=== PATIENT | female | born 1945 | race Caucasian/White ===

== ENCOUNTER 2020-06-02 20:40 | Inpatient (IN) | payer OTHER ==
[~2020-06-02] VITALS: Ht 157.5 cm; Wt 65.8 kg
--- NOTE | 2020-06-02 22:06 | NUR ---
PT ARRIVED ON UNIT VIA EMS STRETCHER. POSITIONED IN BED FOR COMFORT. ORIENTED TO ROOM AND CALL LIGHT.
--- NOTE | 2020-06-02 22:10 | NUR ---
CALLED DR REDDY TO RECEIVE ADMIT ORDERS.
--- NOTE | 2020-06-03 | NUR ---
STARTED IV FLUIDS PER ORDER. STARTED SANITARY LANDFILL OPERATOR AND GAVE INSTRUCTIONS ON USE. STARTED PROTONIX DRIP AT 10 ML/HR. ALL TUBING CAPPED AND LABELED.
--- NOTE | 2020-06-03 00:02 | NUR ---
PROVIDED SUPPLIES TO STORE AND CLEAN DENTURES.
[2020-06-03 00:06] VITALS: BP 116/64; BMI 26.6
[2020-06-03] MEDS ORDERED: LEVEMIR FL100 UNIT/1 SC (01:01)
[2020-06-03] MEDS ORDERED: HYDROCODON-ACE1 EA10 PO (01:01)
[2020-06-03] MEDS ORDERED: NEURONTIN 400400 MG PO (01:02)
[2020-06-03] MEDS ORDERED: ALDACTONE25 MG PO (01:02)
[2020-06-03] MEDS ORDERED: LISINOPRIL40 MG PO (01:02)
[2020-06-03] MEDS ORDERED: MIRAPEX0.25 MG PO (01:02)
[2020-06-03] MEDS ORDERED: COREG6.25 MG PO (01:03)
[2020-06-03] MEDS ORDERED: CYMBALTA60 MG PO (01:03)
--- NOTE | 2020-06-03 02:00 | NUR ---
PT RESTING QUIETLY ON RIGHT SIDE WITH EYES CLOSED AND EASY RESPIRATION. WILL CONTINUE TO MONITOR FOR NEEDS.
[2020-06-03 04:00] VITALS: BP 95/54
[2020-06-03 06:24] LABS: BASOPHILS 0.7 % (0-2); EOSINOPHILS 2.6 % (0-7); HEMATOCRIT 32.8 % (36.0-48.0); HEMOGLOBIN 10.1 g/dL (12-16); IMMATURE GRANULOCYTES 0.7 % (0-5); LYMPHOCYTES 23.5 % (15-50); MCH 29.5 pg (26.0-34.0); MCHC 30.8 g/dL (31.0-37.0); MCV 95.9 fL (80.0-100.0); MEAN PLATELET VOLUME 9.2 fL (7.4-10.4); MONOCYTES 9.5 % (2-11); PLATELET COUNT 379 10x3/uL (130-400); RBC 3.42 10x6/uL (4.00-5.40); WBC 9.7 10x3/uL (4.8-10.8)
[2020-06-03 06:44] LABS: ANION GAP 14.6 mmol/L (8-16); CALCIUM 8.2 mg/dL (8.5-10.1); CREATININE - SERUM 0.8 mg/dL (0.6-1.3); POTASSIUM - SERUM 4.6 mmol/L (3.5-5.1)
[2020-06-03 08:39] VITALS: BP 98/61
[2020-06-03 12:29] VITALS: BP 109/78
[2020-06-03 14:04] VITALS: BMI 26.5
[2020-06-03 15:56] VITALS: Ht 157.5 cm; Wt 65.8 kg
[2020-06-03 17:15] VITALS: BP 105/62
--- NOTE | 2020-06-03 19:00 | NUR ---
BEDSIDE REPORT RECEIVED AND CARE OF PT ASSUMED. PT LYING IN HIGH JEFFERSON'S POSITION TALKING ON THE PHONE. IV TO LEFT AC PATENT WITH NS INFUSING AT 100 ML/HR. WILL MONITOR FOR NEEDS.
[2020-06-03 20:00] VITALS: BP 153/63
--- NOTE | 2020-06-03 20:00 | NUR ---
HS MEDICATIONS GIVEN. FSBS 91 THIS CHECK REQUIRING NO COVERAGE PER SLIDING SCALE.
--- NOTE | 2020-06-03 21:54 | NUR ---
GAVE DILAUDID BOLUS 0.4 VIA RESOURCE EFFICIENCY MANAGER PUMP FOR PAIN.
--- NOTE | 2020-06-04 01:13 | NUR ---
PT AWAKE MOST OF THE NIGHT DUE TO PT IN NEXT ROOM YELLING ALL NIGHT.
--- NOTE | 2020-06-04 02:25 | NUR ---
CALLED TO ROOM...PT WANTS PAIN MEDICATION INCREASED BECAUSE OF CHRONIC BACK AND SHOULDER PAIN. GAVE 0.4 MG BOLUS DOSE OF DILAUDID VIA WELDER SETTER ELECTRON BEAM MACHINE PER ORDER. TOLD PT TO SPEAK TO MD IN AM IF SHE NEEDS ADDITIONAL PAIN MEDS.
--- NOTE | 2020-06-04 04:38 | NUR ---
PROVIDED ORAL CARE KIT AND TEACHING FOR ORAL CARE.
[2020-06-04 04:52] LABS: BASOPHILS 0.9 % (0-2); HEMATOCRIT 31.1 % (36.0-48.0); HEMOGLOBIN 9.6 g/dL (12-16); IMMATURE GRANULOCYTES 0.5 % (0-5); LYMPHOCYTES 27.2 % (15-50); MCH 29.4 pg (26.0-34.0); MCHC 30.9 g/dL (31.0-37.0); MCV 95.1 fL (80.0-100.0); MEAN PLATELET VOLUME 9.1 fL (7.4-10.4); MONOCYTES 8.6 % (2-11); NEUTROPHILS 59.8 % (40-80); PLATELET COUNT 381 10x3/uL (130-400); RBC 3.27 10x6/uL (4.00-5.40); RDW 13.7 % (11.5-14.5); WBC 8.6 10x3/uL (4.8-10.8)
[2020-06-04 05:22] LABS: ALBUMIN 2.7 g/dL (3.4-5.0); ALKALINE PHOSPHATASE 87 U/L (30-120); ALT (SGPT) 11 U/L (10-68); BILIRUBIN - TOTAL 0.17 mg/dL (0.2-1.3); CALCIUM 8.5 mg/dL (8.5-10.1); CARBON DIOXIDE 23.7 mmol/L (21.0-32.0); CHLORIDE - SERUM 108 mmol/L (98-107); CREATININE - SERUM 0.7 mg/dL (0.6-1.3); GLUCOSE 72 mg/dL (74-106); PROTEIN - SERUM 6.5 g/dL (6.4-8.2); SODIUM 140 mmol/L (136-145); eGFR NON AFRICAN AMERICAN 87 mL/min (90-120)
[2020-06-04 05:27] LABS: CALC OSMOLALITY 278 mosm/kg (275-300); POTASSIUM - SERUM 3.9 mmol/L (3.5-5.1); UREA NITROGEN 14 mg/dL (7-18)
[2020-06-04 08:00] VITALS: BP 115/65
--- NOTE | 2020-06-04 08:06 | NUR ---
ASSESSMENT PER FLOW SHEET. PATIENT IS UP FOR SHOWER THIS AM. SHE DENIES ABDOMINAL PAIN AT PRESENT,BUT COMPLAINS OF CHRONIC BACK AND HIP PAIN.
[2020-06-04 13:19] VITALS: BP 126/69
[2020-06-04 16:00] VITALS: BP 138/63
--- NOTE | 2020-06-04 17:49 | NUR ---
REMAINS WITHOUT NEEDS,WITHOUT CHANGE. CONT PLAMN OF CARE
[2020-06-04 20:00] VITALS: BP 141/75
--- NOTE | 2020-06-04 20:30 | NUR ---
PT SITTING UP ON SIDE OF BED WITHOUT DISTRESS, AOX4. IV LEFT AC INFUSING NS @ 100, PROTONIX @ 10, DILAUDID AUDIOVISUAL PRODUCTION SPECIALIST. PT STATES BACK HURTS, HAVING SPASMS. FSBS 71. BENADRYL GIVEN FOR SLEEP. DENIES OTHER NEEDS AT THIS TIME. CL IN REACH, WILL CTM
[2020-06-05] VITALS: BP 140/68
[2020-06-05 04:00] VITALS: BP 140/79
[2020-06-05 06:10] LABS: BASOPHILS 1.2 % (0-2); EOSINOPHILS 2.8 % (0-7); HEMATOCRIT 31.3 % (36.0-48.0); HEMOGLOBIN 9.9 g/dL (12-16); IMMATURE GRANULOCYTES 0.5 % (0-5); LYMPHOCYTES 23.2 % (15-50); MCH 29.7 pg (26.0-34.0); MCHC 31.6 g/dL (31.0-37.0); MEAN PLATELET VOLUME 8.9 fL (7.4-10.4); MONOCYTES 7.6 % (2-11); NEUTROPHILS 64.7 % (40-80); PLATELET COUNT 399 10x3/uL (130-400); RBC 3.33 10x6/uL (4.00-5.40); RDW 13.5 % (11.5-14.5); WBC 9.2 10x3/uL (4.8-10.8)
[2020-06-05 07:08] LABS: ALKALINE PHOSPHATASE 109 U/L (30-120); ALT (SGPT) 13 U/L (10-68); BILIRUBIN - TOTAL 0.24 mg/dL (0.2-1.3); CALCIUM 8.7 mg/dL (8.5-10.1); CARBON DIOXIDE 25.6 mmol/L (21.0-32.0); CHLORIDE - SERUM 107 mmol/L (98-107); CREATININE - SERUM 0.7 mg/dL (0.6-1.3); POTASSIUM - SERUM 3.5 mmol/L (3.5-5.1); PROTEIN - SERUM 6.8 g/dL (6.4-8.2); SODIUM 141 mmol/L (136-145); eGFR NON AFRICAN AMERICAN 87 mL/min (90-120)
[2020-06-05 07:10] LABS: CALC OSMOLALITY 277 mosm/kg (275-300); GLUCOSE 70 mg/dL (74-106); UREA NITROGEN 9 mg/dL (7-18)
[2020-06-05 08:46] VITALS: BP 148/76
[2020-06-05 12:17] VITALS: BP 161/82
--- NOTE | 2020-06-05 12:30 | NUR ---
PT C/O SPASMS IN HER BACK. STATES THAT DILAUDID IS NOT HELPING SPASMS ONLY STOMACH. ENCOURAGED PT TO SPEAK TO DR'S DURING ROUNDS IN REGARDS TO SOMETHING FOR SPASMS. NO OTHER NEEDS AT THIS TIME. CONTINUE WITH PLAN OF CARE
[2020-06-05 16:53] VITALS: BP 184/86
[2020-06-05 20:00] VITALS: BP 150/71
--- NOTE | 2020-06-05 20:00 | NUR ---
PT LYING IN BED SLEEPING WITHOUT DISTRESS, IV LEFT AC INFUSING NS @ 100, PROTONIX @ 10, DILAUDID MEDICAL OFFICE COORDINATOR. CL IN REACH, WILL CTM
--- NOTE | 2020-06-05 21:15 | NUR ---
PT GIVEN ZANAFLEX FOR BACK SPASMS. FSBS 77. DENIES OTHER NEEDS AT THIS TIME. CL IN REACH, WILL CTM
[2020-06-06] VITALS: BP 163/83
--- NOTE | 2020-06-06 01:45 | NUR ---
PT SAT UP ON SIDE OF BED AND BEGAN VOMITING INTO EMESIS BAG. VOMITED 100ML YELLOW LIQUID. ZOFRAN GIVEN
[2020-06-06 04:00] VITALS: BP 145/83
[2020-06-06 04:52] LABS: BASOPHILS 0.9 % (0-2); EOSINOPHILS 0.6 % (0-7); HEMATOCRIT 32.5 % (36.0-48.0); HEMOGLOBIN 10.3 g/dL (12-16); IMMATURE GRANULOCYTES 1.6 % (0-5); LYMPHOCYTES 11.7 % (15-50); MCH 29.9 pg (26.0-34.0); MCHC 31.7 g/dL (31.0-37.0); MCV 94.2 fL (80.0-100.0); MONOCYTES 4.5 % (2-11); NEUTROPHILS 80.7 % (40-80); PLATELET COUNT 415 10x3/uL (130-400); RBC 3.45 10x6/uL (4.00-5.40); RDW 13.5 % (11.5-14.5); WBC 9.3 10x3/uL (4.8-10.8)
[2020-06-06 05:28] LABS: ALBUMIN 2.8 g/dL (3.4-5.0); BILIRUBIN - TOTAL 0.23 mg/dL (0.2-1.3); CARBON DIOXIDE 20.1 mmol/L (21.0-32.0); CREATININE - SERUM 0.8 mg/dL (0.6-1.3); PROTEIN - SERUM 6.1 g/dL (6.4-8.2)
[2020-06-06 05:40] LABS: POTASSIUM - SERUM 4.1 mmol/L (3.5-5.1)
[2020-06-06 08:00] VITALS: BP 130/79
[2020-06-06 12:00] VITALS: BP 139/63
--- NOTE | 2020-06-06 13:49 | NUR ---
Nutrition follow-up: Pts diet advanced to regular as tolerated at lunch today Pt had some vomiting last night Labs reviewed WT: 145# Will provide food choices with selective menus and honor food preferences. Will offer nutritional supplements. RDN following.
--- NOTE | 2020-06-06 14:33 | NUR ---
I have reviewed this patient and I concur with the Shift Assessment completed by the Licensed Practical Nurse today this shift.
[2020-06-06 14:45] LABS: CREATINE KINASE 57 UL (21-215)
[2020-06-06 15:10] LABS: CKMB 1.7 U/L (0.0-3.6); TROPONIN-I 0.027 ng/mL (0.000-0.060)
[2020-06-06 15:26] VITALS: BP 130/70
[2020-06-06 19:55] LABS: CKMB 1.5 U/L (0.0-3.6); CREATINE KINASE 57 UL (21-215); TROPONIN-I < 0.017 ng/mL (0.000-0.060)
[2020-06-06 20:00] VITALS: BP 127/62
--- NOTE | 2020-06-06 20:00 | NUR ---
PT SITTING UP IN BED WITHOUT DISTRESS, AOX4. IV LEFT AC INFUSING NS @ 100, DILAUDID WORKSHOP MANAGER FOR PAIN. REQUESTING ZANAFLEX WITH HS MEDS. WILL GIVE ORDERED. PROVIDED ICE CHIPS. DENIES OTHER NEEDS AT THIS TIME. CL IN REACH, WILL CTM
[2020-06-07] VITALS: BP 173/84
[2020-06-07 02:00] LABS: BASOPHILS 0.8 % (0-2); EOSINOPHILS 1.2 % (0-7); HEMATOCRIT 31.3 % (36.0-48.0); HEMOGLOBIN 9.8 g/dL (12-16); LYMPHOCYTES 15.8 % (15-50); MCH 29.7 pg (26.0-34.0); MCHC 31.3 g/dL (31.0-37.0); MCV 94.8 fL (80.0-100.0); NEUTROPHILS 70.2 % (40-80); PLATELET COUNT 406 10x3/uL (130-400); RDW 13.9 % (11.5-14.5); WBC 8.5 10x3/uL (4.8-10.8)
[2020-06-07 02:19] LABS: ALBUMIN 2.7 g/dL (3.4-5.0); ALKALINE PHOSPHATASE 100 U/L (30-120); ALT (SGPT) 11 U/L (10-68); BILIRUBIN - TOTAL 0.18 mg/dL (0.2-1.3); CALCIUM 8.3 mg/dL (8.5-10.1); CARBON DIOXIDE 20.8 mmol/L (21.0-32.0); CHLORIDE - SERUM 109 mmol/L (98-107); CKMB 1.5 U/L (0.0-3.6); CREATINE KINASE 47 UL (21-215); CREATININE - SERUM 0.8 mg/dL (0.6-1.3); GLUCOSE 109 mg/dL (74-106); PROTEIN - SERUM 6.3 g/dL (6.4-8.2); SODIUM 144 mmol/L (136-145); eGFR NON AFRICAN AMERICAN 74 mL/min (90-120)
[2020-06-07 02:23] LABS: CALC OSMOLALITY 285 mosm/kg (275-300); POTASSIUM - SERUM 3.3 mmol/L (3.5-5.1); TROPONIN-I < 0.017 ng/mL (0.000-0.060); UREA NITROGEN 6 mg/dL (7-18)
--- NOTE | 2020-06-07 02:30 | NUR ---
PT AWAKE AND SITTING ON SIDE OF BED. STATES SHE IS HAVING BACK SPASMS, REQUESTING ZANAFLEX. GAVE ORDERED. CL IN REACH, WILL CTM
[2020-06-07 04:00] VITALS: BP 178/81
[2020-06-07 09:17] VITALS: BP 174/88
[2020-06-07 12:53] VITALS: BP 174/83
--- NOTE | 2020-06-07 15:25 | NUR ---
FAMILY TO VISIT. PATIENT IS WITHOUT DISTRESS. COMPLAINS OF SOME NAUSEA
[2020-06-07 17:11] VITALS: BP 187/100
--- NOTE | 2020-06-07 18:27 | NUR ---
TOLERATED ALL OF SOUP AT DINNER. SHE IS WITHOUT DISTRESS.CONT PLAN OF CARE
[2020-06-07 20:00] VITALS: BP 148/87
--- NOTE | 2020-06-07 21:00 | NUR ---
PT LYING IN BED WITHOUT DISTRESS, AOX4. DAUGHTER AT BEDSIDE. IV LEFT AC INFUSING NS @ 100, PROTONIX @ 10, DILAUDID PLANNING DIRECTOR. GAVE PT ZOFRAN PRIOR TO HER TAKING HS MEDS. PT REQUESTED AND GIVEN ZANAFLEX FOR BACK PAIN. DENIES OTHER NEEDS AT THIS TIME. CL IN REACH, WILL CTM
[2020-06-08 04:00] VITALS: BP 168/93
--- NOTE | 2020-06-08 04:00 | NUR ---
PT LYING IN BED WITHOUT DISTRESS SLEEPING, WILL CTM
[2020-06-08 07:13] LABS: BASOPHILS 0.6 % (0-2); HEMOGLOBIN 9.7 g/dL (12-16); IMMATURE GRANULOCYTES 1.4 % (0-5); LYMPHOCYTES 14.5 % (15-50); MCH 29.2 pg (26.0-34.0); MCHC 31.3 g/dL (31.0-37.0); MCV 93.4 fL (80.0-100.0); MEAN PLATELET VOLUME 8.9 fL (7.4-10.4); MONOCYTES 7.5 % (2-11); PLATELET COUNT 384 10x3/uL (130-400); RBC 3.32 10x6/uL (4.00-5.40); RDW 14.2 % (11.5-14.5); WBC 9.5 10x3/uL (4.8-10.8)
--- NOTE | 2020-06-08 08:00 | NUR ---
ASSESSMENT PER FLOW SHEET. PATIENT WITHOUT SIGNS OF DISTRESS. TOLERATING SMALL AMOUNTS OF FULL LIQUID DIET. MONITOR FOR NEEDS
[2020-06-08 09:30] VITALS: BP 174/84
[2020-06-08 09:35] LABS: ALBUMIN 2.8 g/dL (3.4-5.0); ANION GAP 14.2 mmol/L (8-16); BILIRUBIN - TOTAL 0.17 mg/dL (0.2-1.3); CALCIUM 8.2 mg/dL (8.5-10.1); CREATININE - SERUM 0.8 mg/dL (0.6-1.3); POTASSIUM - SERUM 3.2 mmol/L (3.5-5.1); PROTEIN - SERUM 5.8 g/dL (6.4-8.2)
[2020-06-08 13:23] VITALS: BP 132/72
[2020-06-08 16:23] VITALS: BP 137/79
[2020-06-08 20:00] VITALS: BP 142/72
[2020-06-09 00:10] VITALS: BP 160/82
[2020-06-09 04:30] VITALS: BP 164/87
[2020-06-09 07:39] LABS: ALBUMIN 2.6 g/dL (3.4-5.0); ALKALINE PHOSPHATASE 82 U/L (30-120); ALT (SGPT) 13 U/L (10-68); BILIRUBIN - TOTAL 0.16 mg/dL (0.2-1.3); CALC OSMOLALITY 281 mosm/kg (275-300); CALCIUM 7.9 mg/dL (8.5-10.1); CARBON DIOXIDE 27.3 mmol/L (21.0-32.0); CHLORIDE - SERUM 107 mmol/L (98-107); CREATININE - SERUM 0.7 mg/dL (0.6-1.3); GLUCOSE 105 mg/dL (74-106); POTASSIUM - SERUM 3.1 mmol/L (3.5-5.1); PROTEIN - SERUM 5.6 g/dL (6.4-8.2); SODIUM 143 mmol/L (136-145); UREA NITROGEN 3 mg/dL (7-18); eGFR NON AFRICAN AMERICAN 87 mL/min (90-120)
[2020-06-09 07:46] LABS: BASOPHILS 0.9 % (0-2); EOSINOPHILS 2.2 % (0-7); HEMATOCRIT 30.1 % (36.0-48.0); HEMOGLOBIN 9.5 g/dL (12-16); IMMATURE GRANULOCYTES 0.8 % (0-5); LYMPHOCYTES 17.8 % (15-50); MCH 29.1 pg (26.0-34.0); MCHC 31.6 g/dL (31.0-37.0); MONOCYTES 10.3 % (2-11); PLATELET COUNT 377 10x3/uL (130-400); RBC 3.27 10x6/uL (4.00-5.40); WBC 7.7 10x3/uL (4.8-10.8)
--- NOTE | 2020-06-09 08:40 | NUR ---
ASSESSMENT PER FLOW SHEET. STATES FEELING A LITTLE BETTER, BUT AFRAID TO EAT MUCH. USING HUMAN RESOURCES ADMINISTRATOR , BUT TRYING TO USE LESS. MONITOR FOR NEEDS
[2020-06-09 09:49] VITALS: BP 148/84
[2020-06-09 12:15] VITALS: BP 165/79
--- NOTE | 2020-06-09 12:30 | NUR ---
WANTS TO SHOWER AFTER LUNCH
--- NOTE | 2020-06-09 14:50 | NUR ---
BED CHANGE AND SHOWER.
--- NOTE | 2020-06-09 15:07 | NUR ---
CALL FROM DAUGHTER,PASSWORD CONFIRMED. UPDATE ON PATIENT GIVEN
[2020-06-09 17:21] VITALS: BP 168/92
--- NOTE | 2020-06-09 19:00 | NUR ---
BEDSIDE REPORT RECEIVED AND CARE OF PT ASSUMED. PT LYING ON RIGHT SIDE WITH EYES CLOSED. IV TO RIGHT FA PATENT WITH HEPARIN INFUSING AT 18 ML/HR. MCGHEE CATHETER DRAINING TO GRAVITY WITH YELLOW URINE IN COLLECTION BAG. LARGE BLISTERS AND REDNESS ON LEFT FOOT. O2 IN USE VIA NC AT 4L. WILL MONITOR FOR NEEDS.
--- NOTE | 2020-06-09 19:00 | NUR ---
BEDSIDE REPORT RECEIVED AND CARE OF PT ASSUMED. PT LYING IN MID JEFFERSON'S POSITION WITH EYES CLOSED. IV TO LEFT AC SALINE LOCKED. WILL MONITOR FOR NEEDS.
[2020-06-09 20:00] VITALS: BP 170/102
--- NOTE | 2020-06-09 20:15 | NUR ---
HS MEDICATIONS GIVEN TO INCLUDE NORCO PO PER REQUEST FOR PAIN IN LEG. FSBS 144 THIS CHECK REQUIRING NO COVERAGE PER SLIDING SCALE.
--- NOTE | 2020-06-09 20:53 | NUR ---
HS MEDICATIONS GIVEN. FSBS 131 THIS CHECK REQUIRING NO COVERAGE PER SLIDING SCALE.
[2020-06-10 00:05] VITALS: BP 175/91
--- NOTE | 2020-06-10 00:45 | NUR ---
POTASSIUM RE-CHECK: 2.8 REQUIRING COVERAGE PER THE ELECTROLYTE PROTOCOL: 20 MEQ K DUR PO Q2 HRS X3 DOSES. FIRST DOSE GIVEN.
[2020-06-10 04:30] VITALS: BP 163/76
[2020-06-10 05:15] LABS: BASOPHILS 0.6 % (0-2); EOSINOPHILS 1.3 % (0-7); HEMATOCRIT 31.9 % (36.0-48.0); HEMOGLOBIN 10.3 g/dL (12-16); IMMATURE GRANULOCYTES 0.7 % (0-5); LYMPHOCYTES 17.1 % (15-50); MCH 29.3 pg (26.0-34.0); MCHC 32.3 g/dL (31.0-37.0); MCV 90.6 fL (80.0-100.0); MONOCYTES 10.8 % (2-11); NEUTROPHILS 69.5 % (40-80); PLATELET COUNT 349 10x3/uL (130-400); RBC 3.52 10x6/uL (4.00-5.40); RDW 13.8 % (11.5-14.5); WBC 8.3 10x3/uL (4.8-10.8)
[2020-06-10 05:45] LABS: ALBUMIN 2.8 g/dL (3.4-5.0); ALKALINE PHOSPHATASE 86 U/L (30-120); ALT (SGPT) 11 U/L (10-68); BILIRUBIN - TOTAL 0.19 mg/dL (0.2-1.3); CALC OSMOLALITY 285 mosm/kg (275-300); CALCIUM 8.4 mg/dL (8.5-10.1); CARBON DIOXIDE 30.5 mmol/L (21.0-32.0); CHLORIDE - SERUM 108 mmol/L (98-107); CREATININE - SERUM 0.6 mg/dL (0.6-1.3); GLUCOSE 130 mg/dL (74-106); POTASSIUM - SERUM 3.2 mmol/L (3.5-5.1); PROTEIN - SERUM 6.5 g/dL (6.4-8.2); SODIUM 144 mmol/L (136-145); UREA NITROGEN 3 mg/dL (7-18); eGFR NON AFRICAN AMERICAN > 90 mL/min (90-120)
[2020-06-10 08:44] VITALS: BP 167/102
[2020-06-10 13:30] VITALS: BP 142/97
[2020-06-10 17:37] VITALS: BP 152/101
--- NOTE | 2020-06-10 19:00 | NUR ---
BEDSIDE REPORT RECEIVED AND CARE OF PT ASSUMED. PT LYING IN LOW JEFFERSON'S POSITION WITH EYES CLOSED. IV TO LEFT AC SALINE LOCKED. WILL MONITOR FOR NEEDS.
--- NOTE | 2020-06-10 19:17 | NUR ---
PATIENT IN BED WITH IV INTACT. NO COMPLAINTS OR SIGNS OF DISTRESS. CALL LIGHT WITHIN REACH.
[2020-06-10 20:00] VITALS: BP 142/90
--- NOTE | 2020-06-10 21:41 | NUR ---
HS MEDICATIONS GIVEN TO INCLUDE NORCO AND ZANAFELX PER REQUEST. WILL CONTINUE TO MONITOR FOR NEEDS.
[2020-06-11] VITALS: BP 121/89
[2020-06-11 04:00] VITALS: BP 127/83
--- NOTE | 2020-06-11 04:00 | NUR ---
EMPTIED TRASH...PT HAD THROWN AWAY EVERYTHING IN ROOM IN CLUDING TELEPHONE, IV TUBING, INCENTIVE INSPIROMETER. TOOK IV POOL OUT OF ROOM TO PROTECT EQUIPMENT.
[2020-06-11 05:47] LABS: BASOPHILS 0.8 % (0-2); EOSINOPHILS 1.7 % (0-7); HEMATOCRIT 37.4 % (36.0-48.0); HEMOGLOBIN 12.1 g/dL (12-16); IMMATURE GRANULOCYTES 0.8 % (0-5); MCH 29.6 pg (26.0-34.0); MCHC 32.4 g/dL (31.0-37.0); MCV 91.4 fL (80.0-100.0); MEAN PLATELET VOLUME 9.4 fL (7.4-10.4); MONOCYTES 9.4 % (2-11); NEUTROPHILS 64.3 % (40-80); PLATELET COUNT 392 10x3/uL (130-400); RBC 4.09 10x6/uL (4.00-5.40); RDW 13.9 % (11.5-14.5)
[2020-06-11 06:21] LABS: ALKALINE PHOSPHATASE 92 U/L (30-120); BILIRUBIN - TOTAL 0.31 mg/dL (0.2-1.3); CALCIUM 9.2 mg/dL (8.5-10.1); CARBON DIOXIDE 27.3 mmol/L (21.0-32.0); CHLORIDE - SERUM 104 mmol/L (98-107); CREATININE - SERUM 0.6 mg/dL (0.6-1.3); GLUCOSE 111 mg/dL (74-106); POTASSIUM - SERUM 3.4 mmol/L (3.5-5.1); PROTEIN - SERUM 6.8 g/dL (6.4-8.2); SODIUM 139 mmol/L (136-145); eGFR NON AFRICAN AMERICAN > 90 mL/min (90-120)
[2020-06-11 06:22] LABS: ALT (SGPT) 7 U/L (10-68); CALC OSMOLALITY 276 mosm/kg (275-300); UREA NITROGEN 7 mg/dL (7-18)
--- NOTE | 2020-06-11 07:30 | NUR ---
REC'D IN BED AWAKE AND ALERT. RESP EVEN AND UNLABORED WITH NO DISTRESS NOTED. CAN EXPRESS NEEDS AND WANTS. NO C/O NOTED OR VOICED ASSESSMENT COMPLETED. C/L IN REACH AT BEDSIDE.
[2020-06-11 10:04] VITALS: BP 136/97
--- NOTE | 2020-06-11 10:41 | NUR ---
WAS MEDICATED WITH NORCO FOR C/O ABD PAIN RATING 8/10 ON PAIN SCALE. C/L IN REACH AT BEDSIDE.
[2020-06-11 13:46] VITALS: BP 145/46
--- NOTE | 2020-06-11 14:48 | NUR ---
Nutrition follow-up: Diet: Regular soft PO intake ~60% of last 9 meals labs reviewed Wt: 145# +BM RDN following.
--- NOTE | 2020-06-11 15:38 | NUR ---
I have reviewed this patient and I concur with the Shift Assessment completed by the Licensed Practical Nurse today this shift.
[2020-06-11 16:47] VITALS: BP 135/95
--- NOTE | 2020-06-11 17:26 | NUR ---
PT WAS MEDICATED WITH NORCO PER ORDERS FOR C/O PAIN RATING 7/10 ON PAIN SCALE. C/L IN REACH AT BEDSIDE.
[2020-06-11 20:00] VITALS: BP 127/88
--- NOTE | 2020-06-11 20:00 | NUR ---
PT SITTING UP IN BED WITHOUT DISTRESS, AOX4. IV LEFT AC SL. PT STATES PAIN IN ABDOMEN 03/27. REQUESTING NORCO WHEN DUE AND ZANAFLEX AT BEDTIME. WILL GIVE ORDERED. DENIES OTHER NEEDS AT THIS TIME. CL IN REACH, WILL CTM
--- NOTE | 2020-06-11 21:30 | NUR ---
FSBS 174, PT REFUSED COVERAGE. ZANAFLEX AND NORCO GIVEN FOR PAIN. DENIES OTHER NEEDS AT THIS TIME. CL IN REACH, WILL CTM
[2020-06-12] VITALS: BP 94/63
[2020-06-12 04:00] VITALS: BP 126/73
[2020-06-12 05:27] LABS: BASOPHILS 0.7 % (0-2); EOSINOPHILS 3.3 % (0-7); HEMATOCRIT 38.1 % (36.0-48.0); HEMOGLOBIN 12.3 g/dL (12-16); IMMATURE GRANULOCYTES 0.8 % (0-5); LYMPHOCYTES 30.7 % (15-50); MCH 29.7 pg (26.0-34.0); MCHC 32.3 g/dL (31.0-37.0); MEAN PLATELET VOLUME 9.5 fL (7.4-10.4); NEUTROPHILS 55.5 % (40-80); PLATELET COUNT 373 10x3/uL (130-400); RBC 4.14 10x6/uL (4.00-5.40); RDW 14.3 % (11.5-14.5); WBC 7.5 10x3/uL (4.8-10.8)
--- NOTE | 2020-06-12 05:30 | NUR ---
PT TOOK SHOWER AT THIS TIME, LINENS CHANGED
[2020-06-12 06:25] LABS: ALBUMIN 3.1 g/dL (3.4-5.0); BILIRUBIN - TOTAL 0.25 mg/dL (0.2-1.3); CALCIUM 9.5 mg/dL (8.5-10.1); CARBON DIOXIDE 28.9 mmol/L (21.0-32.0); PROTEIN - SERUM 6.7 g/dL (6.4-8.2)
[2020-06-12 06:26] LABS: ANION GAP 8.7 mmol/L (8-16); CREATININE - SERUM 0.8 mg/dL (0.6-1.3); POTASSIUM - SERUM 3.6 mmol/L (3.5-5.1)
--- NOTE | 2020-06-12 07:15 | NUR ---
REC'D IN BED AWAKE AND ALERT. RESP EVEN AND UNLABORED WITH NO DISTRESS NOTED. CAN EXPRESS NEEDS AND WANTS. NO C/O NOTED OR VOICED. ASSESSMENT COMPLETED. C/L IN REACH AT BEDSIDE.
--- NOTE | 2020-06-12 09:21 | NUR ---
WAS MEDICATED WITH NORCO @ THIS TIME FOR C/O PAIN PER ORDERS. C/L IN REACH AT BEDSIDE.
[2020-06-12 13:46] VITALS: BP 125/75
--- NOTE | 2020-06-12 14:45 | NUR ---
WAS MEDICATED AT THIS TIME FOR C/O PAIN AT THIS TIME PER ORDERS. C/L IN REACH AT BEDSIDE.
[2020-06-12 18:10] VITALS: BP 106/63
--- NOTE | 2020-06-12 18:45 | NUR ---
I have reviewed this patient and I concur with the Shift Assessment completed by the Licensed Practical Nurse today this shift.
[2020-06-12 20:00] VITALS: BP 108/66
--- NOTE | 2020-06-12 20:00 | NUR ---
PT SITTING UP IN BED WITHOUT DISTRESS, AOX4. STATES PAIN TO HER BACK AND ABD BUT THAT OVERALL SHE FEELS BETTER TODAY. GAVE NORCO AND ZANAFLEX FOR PAIN WITH HS MEDS. TOOK WITHOUT DIFFICULTY. DENIES NAUSEA. DENIES NEEDS AT THIS TIME. CL IN REACH, WILL CTM
[2020-06-13] VITALS: BP 98/65
[2020-06-13 04:29] LABS: BASOPHILS 0.7 % (0-2); EOSINOPHILS 3.9 % (0-7); HEMATOCRIT 35.9 % (36.0-48.0); HEMOGLOBIN 11.4 g/dL (12-16); IMMATURE GRANULOCYTES 0.8 % (0-5); LYMPHOCYTES 32.9 % (15-50); MCH 29.3 pg (26.0-34.0); MCHC 31.8 g/dL (31.0-37.0); MCV 92.3 fL (80.0-100.0); MEAN PLATELET VOLUME 9.8 fL (7.4-10.4); MONOCYTES 8.7 % (2-11); PLATELET COUNT 355 10x3/uL (130-400); RBC 3.89 10x6/uL (4.00-5.40); RDW 14.4 % (11.5-14.5); WBC 7.5 10x3/uL (4.8-10.8)
[2020-06-13 04:51] LABS: ALBUMIN 2.9 g/dL (3.4-5.0); ANION GAP 8.6 mmol/L (8-16); BILIRUBIN - TOTAL 0.26 mg/dL (0.2-1.3); CALCIUM 9.2 mg/dL (8.5-10.1); CARBON DIOXIDE 29.7 mmol/L (21.0-32.0); CREATININE - SERUM 0.8 mg/dL (0.6-1.3); POTASSIUM - SERUM 3.3 mmol/L (3.5-5.1); PROTEIN - SERUM 6.4 g/dL (6.4-8.2)
[2020-06-13 04:52] VITALS: BP 119/74
[2020-06-13 08:12] VITALS: BP 124/65
[2020-06-13] MEDS ORDERED: CARAFATE1 G PO (10:03)
--- NOTE | 2020-06-13 10:45 | MORECARE ---
CASE MANAGEMENT DISCHARGE SUMMARY PATIENT: JEFF SIMON UNIT: [id number] ADM DATE: 06/02/20 AGE: 74 : 45 SEX: F ROOM/BED: D.2220 AUTHOR: COOPER,DOC PHYSICIAN: REFERRING PHYSICIAN: WILLIAMS REDDY MD DATE OF SERVICE: 06/13/20 Discharge Plan Patient Name: JEFF SIMON Facility: [facility]:[place] : 1945 Planned Disposition: Home with Home Health Anticipated Discharge Date: Discharge Date: Expected LOS: Initial Reviewer: [email or web address] Initial Review Date: 06/02/2020 Generated: 06/13/20 11:45 am Comments DCP- Discharge Planning Updated by [email or web address]: Virgen Lombardo on 06/13/20 9:[address] Patient Name: JEFF SIMON Admission Status: Elective Accout number: [id number] Admission Date: 06-02-2020 : 1945 Admission Diagnosis:UNSPECIFIED ABDOMINAL PAIN Attending: WILLIAMS REDDY Current LOS: 11 Anticipated DC Date: Planned Disposition: Home with Home Health Primary Insurance: [employer] Discharge Planning Comments: CM met with patient to complete initial dc planning assessment. CM educated patient on the CM role and verbal consent given by patient to complete assessment. Patient lives at home with her daughter lives next door. At discharge patient plans to return home and feels this is a safe discharge. Her brother will be her shuttle van driver home today. CM discussed availability of home health, rehab services, and medical equipment. She has a cane and would like home health. YONNY with [facility] and [facility]. [facility] also served and signed. Patient denied known discharge needs at this time. CM will continue to follow and will assist as needed with dc plans/needs. Certified Pedorthotist: iVrgen Lombardo DCPIA - Discharge Planning Initial Assessment Updated by [email or web address]: Virgen Lombardo on 06/13/20 10:43 am * Is the patient Alert and Oriented? Yes * PCP [facility] IN [place] * Pharmacy [facility] IN [place] * Preadmission Environment Home Alone * ADLs Independent * Equipment Cane * List name and contact numbers for known caregivers / representatives who currently or will assist patient after discharge: ANUEL TOMLIN [phone] * Verbal permission to speak to the caregivers and representatives has been obtained from the patient. N/A * Community resources currently utilized None * Additional services required to return to the preadmission environment? Yes * Can the patient safely return to the preadmission environment? Yes * Has this patient been hospitalized within the prior 30 days at any hospital? No External Providers External Provider: [facility] Next Contact Date: Service Request Date: Service Type: Resolution: Reviewer: Comments: Coverage Notice Reviewer: [id number] Thao Lombardo Notice Issued Date-Time: 06/13/2020 10:30 Notice Type: IM Discharge Notice Notice Delivered To: Patient Relationship to Patient: Absorber Operator Name: Delivery Method: HAND - Hand Delivered Karen Days: Prior Verbal Notification: Recipient Understood Notice: Yes Recipient Signature: Yes Med Rec Note Co-signed by Attending: Coverage Notice Comment: IMM SERVED AND EXPLAINED Reviewer: [email or web address] Thao Lombardo Notice Issued Date-Time: 06/13/2020 10:30 Notice Type: Patient Choice Letter Notice Delivered To: Patient Relationship to Patient: Absorber Operator Name: Delivery Method: HAND - Hand Delivered Karen Days: Prior Verbal Notification: Recipient Understood Notice: Yes Recipient Signature: Yes Med Rec Note Co-signed by Attending: Coverage Notice Comment: YONNY FOR CARE IV VANESSA Patient Name: JEFF SIMON Page [phone] at 1045 All edits/amendments must be made on the electronic document DICTATION DATE: 06/13/20 1045 BUDDHIST MONK: HAO 06/13/20 1045 RPT#: [id number] DC DATE: STATUS: ADM IN [facility] [address] [place] [address] END OF REPORT
--- NOTE | 2020-06-13 10:56 | NUR ---
IV THERAPY REMOVED FROM LEFT AC WITH TIP INTACT. DISCHARGE INSTRUCTIONS GIVEN. PATIENT VERBALIZED UNDERSTANDING. WHEELED OUT VIA WHEELCHAIR TO FRONT ENTRANCE.
--- NOTE | 2020-06-13 16:29 | MORECARE ---
CASE MANAGEMENT DISCHARGE SUMMARY PATIENT: JEFF SIMON UNIT: [id number] ADM DATE: 06/02/20 AGE: 74 : 45 SEX: F ROOM/BED: D.2220 AUTHOR: COOPER,DOC PHYSICIAN: REFERRING PHYSICIAN: WILLIAMS REDDY MD DATE OF SERVICE: 06/13/20 Discharge Plan Patient Name: JEFF SIMON Facility: [facility]:[place] : 1945 Planned Disposition: Home with Home Health Anticipated Discharge Date: Discharge Date: 06/13/2020 Expected LOS: Initial Reviewer: [email or web address] Initial Review Date: 06/02/2020 Generated: 06/13/20 5:29 pm Comments DCP- Discharge Planning Updated by [email or web address]: Virgen Lombardo on 06/13/20 9:[address] Patient Name: JEFF SIMON Admission Status: Elective Accout number: [id number] Admission Date: 06-02-2020 : 1945 Admission Diagnosis:UNSPECIFIED ABDOMINAL PAIN Attending: WILLIAMS REDDY Current LOS: 11 Anticipated DC Date: Planned Disposition: Home with Home Health Primary Insurance: [employer] Discharge Planning Comments: CM met with patient to complete initial dc planning assessment. CM educated patient on the CM role and verbal consent given by patient to complete assessment. Patient lives at home with her daughter lives next door. At discharge patient plans to return home and feels this is a safe discharge. Her brother will be her swing driver home today. CM discussed availability of home health, rehab services, and medical equipment. She has a cane and would like home health. YONNY with [facility] and [facility]. [facility] also served and signed. Patient denied known discharge needs at this time. CM will continue to follow and will assist as needed with dc plans/needs. Hot Air Furnace Installer Repairer: Virgen Lombardo DCPIA - Discharge Planning Initial Assessment Updated by [email or web address]: Virgen Lombardo on 06/13/20 10:43 am * Is the patient Alert and Oriented? Yes * PCP [facility] IN [place] * Pharmacy [facility] IN [place] * Preadmission Environment Home Alone * ADLs Independent * Equipment Cane * List name and contact numbers for known caregivers / representatives who currently or will assist patient after discharge: ANUEL TOMLIN [phone] * Verbal permission to speak to the caregivers and representatives has been obtained from the patient. N/A * Community resources currently utilized None * Additional services required to return to the preadmission environment? Yes * Can the patient safely return to the preadmission environment? Yes * Has this patient been hospitalized within the prior 30 days at any hospital? No Coverage Notice Reviewer: [id number] Lombardo Notice Issued Date-Time: 06/13/2020 10:30 Notice Type: IM Discharge Notice Notice Delivered To: Patient Relationship to Patient: Secretarial Teacher Name: Delivery Method: HAND - Hand Delivered Karen Days: Prior Verbal Notification: Recipient Understood Notice: Yes Recipient Signature: Yes Med Rec Note Co-signed by Attending: Coverage Notice Comment: IMM SERVED AND EXPLAINED Reviewer: [email or web address] Lombardo Notice Issued Date-Time: 06/13/2020 10:30 Notice Type: Patient Choice Letter Notice Delivered To: Patient Relationship to Patient: Secretarial Teacher Name: Delivery Method: HAND - Hand Delivered Karen Days: Prior Verbal Notification: Recipient Understood Notice: Yes Recipient Signature: Yes Med Rec Note Co-signed by Attending: Coverage Notice Comment: YONNY FOR CARE IV VANESSA Last DP export: 06/13/20 9:45 a Patient Name: JEFF SIMON Page [phone] at 1629 All edits/amendments must be made on the electronic document DICTATION DATE: 06/13/201628 CELLO TEACHER: HAO 06/13/209 RPT#: [id number] DC DATE:06/13/20 STATUS: DIS IN [facility] [address] [place] [address] END OF REPORT
--- NOTE | 2020-06-14 07:30 | MORECARE ---
CASE MANAGEMENT DISCHARGE SUMMARY PATIENT: JEFF SIMON UNIT: [id number] ADM DATE: 06/02/20 AGE: 74 : 45 SEX: F ROOM/BED: D.2220 AUTHOR: COOPER,DOC PHYSICIAN: REFERRING PHYSICIAN: WILLIAMS REDDY MD DATE OF SERVICE: 06/14/20 Discharge Plan Patient Name: JEFF SIMON Facility: [facility]:[place] : 1945 Planned Disposition: Home with Home Health Anticipated Discharge Date: Discharge Date: 06/13/2020 Expected LOS: Initial Reviewer: [email or web address] Initial Review Date: 06/02/2020 Generated: 06/14/20 8:29 am Comments DCP- Discharge Planning Updated by [id number]: Virgen Lombardo on 06/14/20 6:[address] patient's number is [phone] DCP- Discharge Planning Updated by [email or web address]: Virgen Lombardo on 06/13/20 9:[address] Patient Name: JEFF SIMON Admission Status: Elective Accout number: [id number] Admission Date: 06-02-2020 : 1945 Admission Diagnosis:UNSPECIFIED ABDOMINAL PAIN Attending: WILLIAMS REDDY Current LOS: 11 Anticipated DC Date: Planned Disposition: Home with Home Health Primary Insurance: [facility] Discharge Planning Comments: CM met with patient to complete initial dc planning assessment. CM educated patient on the CM role and verbal consent given by patient to complete assessment. Patient lives at home with her daughter lives next door. At discharge patient plans to return home and feels this is a safe discharge. Her brother will be her delivery truck driver heavy home today. CM discussed availability of home health, rehab services, and medical equipment. She has a cane and would like home health. YONNY with [facility] and [facility]. [facility] also served and signed. Patient denied known discharge needs at this time. CM will continue to follow and will assist as needed with dc plans/needs. Senior Media Director: Virgen Lombardo DCPIA - Discharge Planning Initial Assessment Updated by [email or web address]: Virgen Lombardo on 06/13/20 10:43 am * Is the patient Alert and Oriented? Yes * PCP [facility] IN [place] * Pharmacy [facility] IN [place] * Preadmission Environment Home Alone * ADLs Independent * Equipment Cane * List name and contact numbers for known caregivers / representatives who currently or will assist patient after discharge: ANUEL TOMLIN [phone] * Verbal permission to speak to the caregivers and representatives has been obtained from the patient. N/A * Community resources currently utilized None * Additional services required to return to the preadmission environment? Yes * Can the patient safely return to the preadmission environment? Yes * Has this patient been hospitalized within the prior 30 days at any hospital? No Coverage Notice Reviewer: [email or web address] Lombardo Notice Issued Date-Time: 06/13/2020 10:30 Notice Type: IM Discharge Notice Notice Delivered To: Patient Relationship to Patient: Intermission Coordinator Name: Delivery Method: HAND - Hand Delivered Karen Days: Prior Verbal Notification: Recipient Understood Notice: Yes Recipient Signature: Yes Med Rec Note Co-signed by Attending: Coverage Notice Comment: IMM SERVED AND EXPLAINED Reviewer: [id number] Lombardo Notice Issued Date-Time: 06/13/2020 10:30 Notice Type: Patient Choice Letter Notice Delivered To: Patient Relationship to Patient: Intermission Coordinator Name: Delivery Method: HAND - Hand Delivered Karen Days: Prior Verbal Notification: Recipient Understood Notice: Yes Recipient Signature: Yes Med Rec Note Co-signed by Attending: Coverage Notice Comment: YONNY FOR CARE IV VANESSA Last DP export: 06/13/20 3:29 p Patient Name: JEFF SIMON Page [phone] at 0730 All edits/amendments must be made on the electronic document DICTATION DATE: 06/14/20728 GARMENT TURNER: HAO 06/14/20728 RPT#: [id number] DC DATE:06/13/20 STATUS: DIS IN [facility] [address] [place] [address] END OF REPORT
== END 2020-06-13 10:57 | disposition home health service (06) | DRG 394 ==
LOC: D.MS 20:40
PROVIDERS: Family Medicine Adult Medicine; ADMIT Surgery; ATTEND Surgery
DX: K63.1 Perforation of intestine (nontraumatic) (principal); F17.203 Nicotine dependence unspecified, with withdrawal; C92.10 Chronic myeloid leukemia, BCR/ABL-positive, not having achieved remission; D64.9 Anemia, unspecified; E11.65 Type 2 diabetes mellitus with hyperglycemia; I10 Essential (primary) hypertension; J44.9 Chronic obstructive pulmonary disease, unspecified; G47.00 Insomnia, unspecified

== ENCOUNTER → 2020-07-25 12:14 | Outpatient (CLI) | payer OTHER ==
[2020-06-03 15:56] VITALS: BMI 26.5
[~2020-07-25 12:14] MED LIST: ALDACTONE25 MG PO; CARAFATE1 G PO; COREG6.25 MG PO; CYMBALTA60 MG PO; HYDROCODON-ACE1 EA10 PO; LEVEMIR FL100 UNIT/1 SC; LISINOPRIL40 MG PO; MIRAPEX0.25 MG PO; NEURONTIN 400400 MG PO
[2020-07-25 12:55] LABS: HEMATOCRIT 35.3 % (36.0-48.0); MCH 28.6 pg (26.0-34.0); MCHC 31.2 g/dL (31.0-37.0); MCV 91.9 fL (80.0-100.0); MEAN PLATELET VOLUME 9.4 fL (7.4-10.4); PLATELET COUNT 370 10x3/uL (130-400); RBC 3.84 10x6/uL (4.00-5.40); RDW 14.4 % (11.5-14.5); WBC 8.9 10x3/uL (4.8-10.8)
[2020-07-25 13:12] LABS: ALBUMIN 3.6 g/dL (3.4-5.0); ANION GAP 8.2 mmol/L (8-16); BILIRUBIN - TOTAL 0.2 mg/dL (0.2-1.3); CALCIUM 9.2 mg/dL (8.5-10.1); CARBON DIOXIDE 31.2 mmol/L (21.0-32.0); CREATININE - SERUM 0.9 mg/dL (0.6-1.3); EOSINOPHILS 2 % (0-7); LYMPHOCYTES 26 % (15-50); MONOCYTES 6 % (2-11); NEUTROPHILS 66 % (40-80); PLATELET ESTIMATE NORMAL; POTASSIUM - SERUM 4.4 mmol/L (3.5-5.1); PROTEIN - SERUM 7.7 g/dL (6.4-8.2)
== END | disposition home or self-care (01) ==
LOC: D.LAB 12:14
PROVIDERS: ATTEND Surgery
DX: I10 Essential (primary) hypertension (principal)